=== PATIENT | male | born 1945 | race Caucasian/White ===

== ENCOUNTER 2017-04-03 21:32 | Inpatient (IN) | payer MEDICARE ==
[~2017-04-03] VITALS: Ht 149.9 cm; Wt 53.5 kg
[~2017-04-03 21:32] MED LIST: BUPR150XL PO; COZA25TA PO; FERR1TAB36 PO; OMEP20TA PO; PLAV75TA29 PO; XARE20TA PO
[2017-04-03 21:41] VITALS: BP 149/86; PULSE 83; RESP 16; TEMP 98.1; O2SAT 97
[2017-04-03] MEDS ORDERED: AMLO5TAB2 PO (22:33)
[2017-04-03] MEDS ORDERED: BUPR150T5 PO (22:33)
[2017-04-03] MEDS ORDERED: MORPHINE SULFATE 8 MG/ML INJ IV PUSH ONE (22:45)
[2017-04-03] MEDS ORDERED: SODIUM CHLORIDE 0.9% FLUSH 10 ML FLUSH IV FLUSH PRN (22:45)
--- NOTE | 2017-04-03 22:55 | PD ---
HPI Chief Complaint: Complaint Time Seen by Provider: 22:28 Travel History International Travel<30 days: No Contact w/Intl Traveler<30days: No Traveled to known affect area: No History of Present Illness HPI 71yo M with PMH of CVA, CAD s/p cardiac stent, bladder tumor s/p tumor resection not on chemo or radiation presents to the ED with c/o left sided abdominal pain that radiates to left back for 1 day. Denies any fever, chest pain, sob, n/v, dysuria, hematuria, testicular pain or penile discharge. PFSH Past Medical History Hx Anticoagulant Therapy: Yes Atrial Fibrillation: Yes Anxiety: No Depression: Yes Cancer: Yes (BLADDER/PROSTATE) Cardiovascular Problems: Yes High Cholesterol: Yes Cerebrovascular Accident: Yes Diabetes: No Diminished Hearing: No Endocrine: No Gastrointestinal Disorders: No GERD: Yes Genitourinary: Yes (PROSTATE) Hypertension: Yes Kidney Stones: Yes Neurologic: Yes Psychiatric: Yes Respiratory: No Seizures: No Triglycerides - High: Yes Past Surgical History Abdominal Surgery: No Cardiac Surgery: No Ear Surgery: No Eye Surgery: No Genitourinary Surgery: Yes (ASCENDING RIGHT TESTICLE REPAIR, BLADDER TUMOR REMOVAL) Oral Surgery: No Thoracic Surgery: No Tonsillectomy: Yes Other Surgery: Yes (TUMOR SCRAPED FROM BLADDER) Social History Alcohol Use: No Tobacco Use: No Substance Use: No Allergies-Medications (Allergen,Severity, Reaction): Coded Allergies: No Known Allergies (Unverified , 04/03/17) Reported Meds & Prescriptions Reported Meds & Active Scripts Active Reported Bupropion HCl ER 12 HR (Bupropion HCl) 150 Mg Tab 150 Mg PO BID Amlodipine (Amlodipine Besylate) 5 Mg Tab 5 Mg PO DAILY Wellbutrin Xl 24 HR (Bupropion HCl) 150 Mg Tab 150 Mg PO DAILY Xarelto (Rivaroxaban) 20 Mg Tab 20 Mg PO DAILY Omeprazole 20 Mg Tab 20 Mg PO DAILY Cozaar (Losartan Potassium) 25 Mg Tab 25 Mg PO DAILY Review of Systems Except as stated in HPI: all other systems reviewed are Neg Physical Exam Narrative GENERAL: 71yo M in mild distress. SKIN: Focused skin assessment warm/dry. HEAD: Atraumatic. Normocephalic. EYES: Pupils equal and round. No scleral icterus. No injection or drainage. ENT: No nasal bleeding or discharge. Mucous membranes pink and moist. NECK: Trachea midline. No JVD. CARDIOVASCULAR: Regular rate and rhythm. No murmur appreciated. RESPIRATORY: No accessory muscle use. Clear to auscultation. Breath sounds equal bilaterally. GASTROINTESTINAL: Abdomen soft, +Epigastric ttp. +LUQ ttp. No rebound tenderness or guarding. BACK: +CVA tenderness on left. MUSCULOSKELETAL: No obvious deformities. No clubbing. No cyanosis. No edema. NEUROLOGICAL: Awake and alert. No obvious cranial nerve deficits. Motor grossly within normal limits. Normal speech. PSYCHIATRIC: Appropriate mood and affect; insight and judgment normal. Data Data Last Documented VS Vital Signs Date Time Temp Pulse Resp B/P Pulse Ox O2 Delivery O2 Flow Rate FiO2 04/04/17 06:41 112 16 146/82 97 Room Air 04/03/17 21:41 98.1 Orders Complete Blood Count With Diff (04/03/17 22:45) Comprehensive Metabolic Panel (04/03/17 22:45) Lipase (04/03/17 22:45) Prothrombin Time / Inr (Pt) (04/03/17 22:45) Act Partial Throm Time (Ptt) (04/03/17 22:45) Urinalysis - C+S If Indicated (04/03/17 22:45) Iv Access Insert/Monitor (04/03/17 22:45) Ecg Monitoring (04/03/17 22:45) Oximetry (04/03/17 22:45) Electrocardiogram (04/03/17 ) Troponin I (04/03/17 22:45) Morphine Inj (Morphine Inj) (04/03/17 22:45) Ct Abd/Pel W/O Iv Contrast (04/04/17 ) Ondansetron Inj (Zofran Inj) (04/04/17 02:00) Morphine Inj (Morphine Inj) (04/04/17 02:00) Tamsulosin (Flomax) (04/04/17 02:15) Sodium Chlorid 0.9% 500 Ml Inj (Ns 500 M (04/04/17 03:15) Sodium Chlorid 0.9% 500 Ml Inj (Ns 500 M (04/04/17 04:45) Blood Culture (04/04/17 06:44) Lactic Acid (04/04/17 06:44) Ceftriaxone Inj (Rocephin Inj) (04/04/17 06:45) Sodium Chlorid 0.9% 500 Ml Inj (Ns 500 M (04/04/17 06:45) Admit Order (Ed Use Only) (04/04/17 ) ^ Saline Lock (04/04/17 06:49) Resp Oxygen Jose C Titrat 1-4 L (04/04/17 ) Notify Dr: Other (04/04/17 06:49) Sodium Chloride 0.9% Flush (Ns Flush) (04/04/17 09:00) Sodium Chloride 0.9% Flush (Ns Flush) (04/04/17 07:00) Labs Laboratory Tests Test 04/03/17 04/04/17 23:25 00:15 White Blood Count 11.5 TH/MM3 Red Blood Count 4.04 MIL/MM3 Hemoglobin 12.3 GM/DL Hematocrit 36.1 % Mean Corpuscular Volume 89.2 FL Mean Corpuscular Hemoglobin 30.4 PG Mean Corpuscular Hemoglobin 34.0 % Concent Red Cell Distribution Width 13.0 % Platelet Count 225 TH/MM3 Mean Platelet Volume 7.6 FL Neutrophils (%) (Auto) 82.8 % Lymphocytes (%) (Auto) 8.1 % Monocytes (%) (Auto) 5.4 % Eosinophils (%) (Auto) 3.4 % Basophils (%) (Auto) 0.3 % Neutrophils # (Auto) 9.6 TH/MM3 Lymphocytes # (Auto) 0.9 TH/MM3 Monocytes # (Auto) 0.6 TH/MM3 Eosinophils # (Auto) 0.4 TH/MM3 Basophils # (Auto) 0.0 TH/MM3 CBC Comment DIFF FINAL Differential Comment Prothrombin Time 13.0 SEC Prothromb Time International 1.2 RATIO Ratio Activated Partial 27.9 SEC Thromboplast Time Sodium Level 143 MEQ/L Potassium Level 4.0 MEQ/L Chloride Level 111 MEQ/L Carbon Dioxide Level 25.2 MEQ/L Anion Gap 7 MEQ/L Blood Urea Nitrogen 21 MG/DL Creatinine 1.50 MG/DL Estimat Glomerular Filtration 46 ML/MIN Rate Random Glucose 118 MG/DL Calcium Level 8.6 MG/DL Total Bilirubin 0.2 MG/DL Aspartate Amino Transf 13 U/L (AST/SGOT) Alanine Aminotransferase 15 U/L (ALT/SGPT) Alkaline Phosphatase 66 U/L Troponin I LESS THAN 0.02 NG/ML Total Protein 6.3 GM/DL Albumin 3.4 GM/DL Lipase 157 U/L Urine Color FLO Urine Turbidity CLOUDY Urine pH 5.5 Urine Specific [place] 1.017 Urine Protein TRACE mg/dL Urine Glucose (UA) NEG mg/dL Urine Ketones NEG mg/dL Urine Occult Blood LARGE Urine Nitrite NEG Urine Bilirubin NEG Urine Leukocyte Esterase NEG Urine RBC INNUM /hpf Urine WBC 3-5 /hpf Urine Squamous Epithelial 6-8 /hpf Cells Urine Amorphous Sediment LARGE Urine Bacteria NONE /hpf Microscopic Urinalysis Comment CULT NOT INDICATED MDM Medical Decision Making Medical Screen Exam Complete: Yes Emergency Medical Condition: Yes Interpretation(s) EKG; NSR 99bpm. Normal axis. No ST segment elevation or depression. Differential Diagnosis Nephrolithiasis vs. pyelonephritis vs. malignancy Narrative Course 71yo M with left abdominal pain radiating to the back for 1 day. Labs reviewed , WBC 11.5. Troponin negative. Creatinine is mildly elevated at 1.50 from baseline. Lipase normal. Pt refused morphine IV because he said he has. UA positive for blood. Sign out to next team Dr. Lunsford to follow up with CTa/p and disposition. Diagnosis Primary Impression: Abdominal pain Qualified Code: R10.32 - Left lower quadrant pain Nori Fernandez DO Apr 03, 2017 22:55
[2017-04-03 23:30] VITALS: BP 150/98; PULSE 97
[2017-04-03 23:35] LABS: AUTOMATED NEUTROPHIL # 9.6 TH/MM3 (1.8-7.7); BASOPHIL % 0.3 % (0.0-2.0); EOSINOPHIL # 0.4 TH/MM3 (0-0.4); EOSINOPHIL % 3.4 % (0.0-4.0); HEMATOCRIT 36.1 % (39.0-51.0); HEMO FLAGS DIFF FINAL; LYMPH % 8.1 % (9.0-44.0); LYMPHOCYTE # 0.9 TH/MM3 (1.0-4.8); MEAN CELL VOLUME 89.2 FL (80.0-100.0); MEAN CORPUSCULAR HEMOGLOBIN 30.4 PG (27.0-34.0); MONO % 5.4 % (0.0-8.0); NEUT % 82.8 % (16.0-70.0); PLATELET COUNT 225 TH/MM3 (150-450); RED BLOOD COUNT 4.04 MIL/MM3 (4.50-5.90); WHITE BLOOD COUNT 11.5 TH/MM3 (4.0-11.0)
[2017-04-03 23:43] LABS: CHLORIDE 111 MEQ/L (98-107); SODIUM (NA) 143 MEQ/L (136-145)
[2017-04-03 23:47] LABS: ANION GAP 7 MEQ/L (5-15); BICARBONATE 25.2 MEQ/L (21.0-32.0); BLOOD UREA NITROGEN 21 MG/DL (7-18)
[2017-04-03 23:49] LABS: APTT (PATIENT) 27.9 SEC (24.3-30.1); INTERNATIONAL NORMALIZED RATIO 1.2 RATIO
[2017-04-03 23:50] LABS: ALT (GPT) 15 U/L (12-78); AST (GOT) 13 U/L (15-37); GLOMERULAR FILTRATION RATE 46 ML/MIN (>89)
[2017-04-03 23:51] LABS: TOTAL BILIRUBIN ADULT 0.2 MG/DL (0.2-1.0)
[2017-04-03 23:53] LABS: ALKALINE PHOSPHATASE 66 U/L (45-117)
[2017-04-04] VITALS (16 sets, daily range): BP systolic 120–163; BP diastolic 67–90; PULSE 73–115; RESP 16–20; TEMP 97.4–99.7; O2SAT 92–99
[2017-04-04 00:41] LABS: BLOOD, URINE LARGE (NEG); GLUCOSE,URINE NEG (NEG); KETONE, URINE NEG (NEG); NITRITE,URINE NEG (NEG); PH, URINE 5.5 (5.0-8.5)
--- NOTE | 2017-04-04 00:47 | PD ---
Physical Exam Date Seen by Provider: Apr 04, 2017 Time Seen by Provider: 00:46 Narrative Accepted in transfer of care from Dr. Fernandez GENERAL: Well-developed well-nourished male in no acute distress no respiratory distress SKIN: Warm and dry. CARDIOVASCULAR: Regular rate and rhythm without murmurs, gallops, or rubs. RESPIRATORY: Breath sounds equal bilaterally. No accessory muscle use. GASTROINTESTINAL: Abdomen soft, non-tender, nondistended. BACK: Nontender without obvious deformity. (L) CVA tenderness. Data Data Last Documented VS Vital Signs Date Time Temp Pulse Resp B/P Pulse Ox O2 Delivery O2 Flow Rate FiO2 04/04/17 06:41 112 16 146/82 97 Room Air 04/03/17 21:41 98.1 Orders Complete Blood Count With Diff (04/03/17 22:45) Comprehensive Metabolic Panel (04/03/17 22:45) Lipase (04/03/17 22:45) Prothrombin Time / Inr (Pt) (04/03/17 22:45) Act Partial Throm Time (Ptt) (04/03/17 22:45) Urinalysis - C+S If Indicated (04/03/17 22:45) Iv Access Insert/Monitor (04/03/17 22:45) Ecg Monitoring (04/03/17 22:45) Oximetry (04/03/17 22:45) Electrocardiogram (04/03/17 ) Troponin I (04/03/17 22:45) Morphine Inj (Morphine Inj) (04/03/17 22:45) Ct Abd/Pel W/O Iv Contrast (04/04/17 ) Ondansetron Inj (Zofran Inj) (04/04/17 02:00) Morphine Inj (Morphine Inj) (04/04/17 02:00) Tamsulosin (Flomax) (04/04/17 02:15) Sodium Chlorid 0.9% 500 Ml Inj (Ns 500 M (04/04/17 03:15) Sodium Chlorid 0.9% 500 Ml Inj (Ns 500 M (04/04/17 04:45) Blood Culture (04/04/17 06:44) Lactic Acid (04/04/17 06:44) Ceftriaxone Inj (Rocephin Inj) (04/04/17 06:45) Sodium Chlorid 0.9% 500 Ml Inj (Ns 500 M (04/04/17 06:45) Admit Order (Ed Use Only) (04/04/17 ) ^ Saline Lock (04/04/17 06:49) Resp Oxygen Jose C Titrat 1-4 L (04/04/17 ) Notify Dr: Other (04/04/17 06:49) Sodium Chloride 0.9% Flush (Ns Flush) (04/04/17 09:00) Sodium Chloride 0.9% Flush (Ns Flush) (04/04/17 07:00) Labs Laboratory Tests Test 04/03/17 04/04/17 23:25 00:15 White Blood Count 11.5 TH/MM3 Red Blood Count 4.04 MIL/MM3 Hemoglobin 12.3 GM/DL Hematocrit 36.1 % Mean Corpuscular Volume 89.2 FL Mean Corpuscular Hemoglobin 30.4 PG Mean Corpuscular Hemoglobin 34.0 % Concent Red Cell Distribution Width 13.0 % Platelet Count 225 TH/MM3 Mean Platelet Volume 7.6 FL Neutrophils (%) (Auto) 82.8 % Lymphocytes (%) (Auto) 8.1 % Monocytes (%) (Auto) 5.4 % Eosinophils (%) (Auto) 3.4 % Basophils (%) (Auto) 0.3 % Neutrophils # (Auto) 9.6 TH/MM3 Lymphocytes # (Auto) 0.9 TH/MM3 Monocytes # (Auto) 0.6 TH/MM3 Eosinophils # (Auto) 0.4 TH/MM3 Basophils # (Auto) 0.0 TH/MM3 CBC Comment DIFF FINAL Differential Comment Prothrombin Time 13.0 SEC Prothromb Time International 1.2 RATIO Ratio Activated Partial 27.9 SEC Thromboplast Time Sodium Level 143 MEQ/L Potassium Level 4.0 MEQ/L Chloride Level 111 MEQ/L Carbon Dioxide Level 25.2 MEQ/L Anion Gap 7 MEQ/L Blood Urea Nitrogen 21 MG/DL Creatinine 1.50 MG/DL Estimat Glomerular Filtration 46 ML/MIN Rate Random Glucose 118 MG/DL Calcium Level 8.6 MG/DL Total Bilirubin 0.2 MG/DL Aspartate Amino Transf 13 U/L (AST/SGOT) Alanine Aminotransferase 15 U/L (ALT/SGPT) Alkaline Phosphatase 66 U/L Troponin I LESS THAN 0.02 NG/ML Total Protein 6.3 GM/DL Albumin 3.4 GM/DL Lipase 157 U/L Urine Color FLO Urine Turbidity CLOUDY Urine pH 5.5 Urine Specific [place] 1.017 Urine Protein TRACE mg/dL Urine Glucose (UA) NEG mg/dL Urine Ketones NEG mg/dL Urine Occult Blood LARGE Urine Nitrite NEG Urine Bilirubin NEG Urine Leukocyte Esterase NEG Urine RBC INNUM /hpf Urine WBC 3-5 /hpf Urine Squamous Epithelial 6-8 /hpf Cells Urine Amorphous Sediment LARGE Urine Bacteria NONE /hpf Microscopic Urinalysis Comment CULT NOT INDICATED MDM Medical Record Reviewed: Yes Supervised Visit with GENIE: No Interpretation(s) Last Impressions Abdomen/Pelvis CT 04/04/17 0000 Signed Impressions: Service Date/Time: Tuesday, April 04, 2017 01:02 - CONCLUSION: 1. Mild hydronephrosis, perinephric stranding and slight proximal ureteral dilatation on the left secondary to a left ureteral calculus at the L5 level. 2. Atherosclerosis and aneurysmal dilatation of the infrarenal abdominal aorta identified. 3. Small fat containing umbilical hernia. 4. Hiatal hernia. Christiano Matamoros MD Differential Diagnosis Accepted in transfer of care from Dr. Fernandez please refer to her dictation Narrative Course Accepted in transfer of care from Dr. Fernandez for follow-up of pending CT abdomen and pelvis CT abdomen and pelvis identifies 2.6 mm mid left ureter stone with mild hydronephrosis hydroureter and perinephric stranding; patient also identified to have 3.6 x 3 cm abdominal aortic aneurysm no evidence of free fluid. Her urinalysis patient identified to have hematuria. 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 Patient given prescription for Lortab 5/325 Zofran to take as needed for nausea and/or vomiting and Flomax. Patient given strainer. Patient encouraged to increase fluid hydration. While in the process of preparing to discharge the patient to home; after IV fluid bolus patient noted to remain tachycardic in a sinus tachycardia with frequent PACs rare PVC but with additional fluid hydration sinus tachycardia does not resolve; patient remains normotensive with no pain or maximum pain 2/ 10 in intensity; patient with attempted ambulation or upon sitting upright complains of dizziness; has received a one-time dose of morphine 3 mg IV and noted to have new renal insufficiency and reports poor oral intake Thursday. Patient taking oral hydration here and has had total 30 cc/kg iv fluid bolus; therefore discussed with [facility] re: OBS; Patient and spouse aware of plan for obs admission and agreeable to stay. Physician Communication Physician Communication call placed to [facility] service discussed with Dr Castaneda -- admit for obstructive uropathy tachycardia possible pyelonephritis w/ acute renal insufficiency and h/ o xarelto anticoagulation for cva and afib Diagnosis Primary Impression: Acute unilateral obstructive uropathy Additional Impressions: Left nephrolithiasis Abdominal aortic aneurysm (AAA) 35 to 39 mm in diameter Renal insufficiency Tachycardia History of atrial fibrillation Admitting Information Admitting Physician Requests: Observation Additional Instruction: Ann Lunsford MD Apr 04, 2017 00:47 Return to the emergency department for any concerns or change in condition; such as pain fever or vomiting Monitor temperature take as needed acetaminophen/Tylenol for fever 100.4F or greater Take pain medication as prescribed as needed be aware that pain medication/her cardiac medication can impair judgment, delay reaction time, increased risk for fall, cause constipation Takes Zofran as prescribed as needed for nausea and/or vomiting Med/Other Pt SpecificInfo: Prescription(s) given Scripts Tamsulosin (Flomax)0.4 Mg Cap0.4 Mg PO HS #7 CAP Ref 0 Prov:Ann Lunsford MD 04/04/17 Ondansetron Odt (Zofran Odt)4 Mg Tab4 Mg SL Q6HR PRN (Nausea/Vomiting) #10 TAB Ref 0 Prov:Ann Lunsford MD 04/04/17 Hydrocodone-Acetaminophen (Lortab)5-325 Mg Tab1 Tab PO Q6H PRN (PAIN) #12 TAB Ref 0 Prov:Ann Lunsford MD 04/04/17 Disposition: 01 DISCHARGE HOME Condition: Stable Ann Lunsford MD Apr 04, 2017 00:47
[2017-04-04 00:51] LABS: URINE COLOR AMBER (YELLW/STRAW)
[2017-04-04 00:52] LABS: COMMENT (UR) CULT NOT INDICATED; COMMENT2 (UR) MUCOUS PRESENT; CULTURE IF INDICATED CULT NOT INDICATED; RBC, URINE INNUM /hpf (0-3)
--- NOTE | 2017-04-04 01:38 | RADRPT ---
EXAM DATE/TIME: 04/04/2017 01:02 [place] COMPARISON: No previous studies available for comparison. INDICATIONS : Left flank pain ORAL CONTRAST: No oral contrast ingested. RADIATION DOSE: 8.23 CTDIvol (mGy) MEDICAL HISTORY : Carcinoma, prostate. Carcinoma, bladder. Hypertension.GERD, Renal stones SURGICAL HISTORY : Bladder tumor removed, testicle repair ENCOUNTER: Initial ACUITY: 1 day PAIN SCALE: 4/10 LOCATION: Left flank TECHNIQUE: Volumetric scanning of the abdomen and pelvis was performed. Using automated exposure control and ad justment of the mA and/or kV according to patient size, radiation dose was kept as low as reasonably achievable to obtain optimal diagnostic quality images. DICOM format image data is available electro nically for review and comparison. FINDINGS: Coronary artery calcification is noted and a large hiatal hernia is present. Liver, gallbladder, sple en, pancreas, adrenal glands and right kidney are unremarkable. There is perinephric stranding on the left, mild left-sided hydronephrosis and proximal slight ureteral dilatation. On axial image 48 ther e is a left ureteral stone measuring 2.6 mm. This is at the level of L5. At the midpole of the left k idney anteriorly a 2.7 x 2.2 cm exophytic mass is present measuring 8 Hounsfield units characteristic of a cyst. Atherosclerotic calcification of the aorta and iliac vessels. Urinary bladder is unremark able. The prostate is prominent measuring 5 x 5 cm AP and transverse dimension. Small bowel, large christiano wel are unremarkable. Small fat containing umbilical hernia. Atherosclerotic calcification of the aor ta and iliac vessels are identified. There is aneurysmal dilatation of the infrarenal abdominal aorta which measures 3.6 x 3 cm in AP and transverse dimension on axial image 38 and just distal to the ta keoff of the inferior mesenteric artery the aorta measures 3.6 x 3.5 cm in AP transverse dimension. L hilda bases are clear. Degenerative changes of the spine are noted. CONCLUSION: 1. Mild hydronephrosis, perinephric stranding and slight proximal ureteral dilatation on the left sec ondary to a left ureteral calculus at the L5 level. 2. Atherosclerosis and aneurysmal dilatation of the infrarenal abdominal aorta identified. 3. Small fat containing umbilical hernia. 4. Hiatal hernia. Christiano Matamoros MD on April 04, 2017 at 1:33 Board Certified Radiologist. This report was verified electronically.
[2017-04-04] MEDS ORDERED: MORPHINE SULFATE 8 MG/ML INJ IV PUSH ONE (02:00)
[2017-04-04] MEDS ORDERED: ONDANSETRON HCL 4 MG/2 ML VIAL IV PUSH ONE (02:00)
[2017-04-04] MEDS ORDERED: TAMSULOSIN HCL 0.4 MG CAP PO ONE (02:15)
[2017-04-04] MEDS ORDERED: SODIUM CHLORID 0.9% 500 ML INJ 500 ML IV ONE ×3 (03:15→06:45)
[2017-04-04] MEDS ORDERED: TAMS5CAP PO (04:20)
[2017-04-04] MEDS ORDERED: ZOFR4TAB3 SL (04:20)
[2017-04-04] MEDS ORDERED: HYDR-3533 PO (04:20)
[2017-04-04] MEDS ORDERED: cefTRIAXone INJ 1,000 MG in SODIUM CHLORIDE 0.9% INJ 100 ML IV ONE (06:45)
[2017-04-04] MEDS ORDERED: BISACODYL 10 MG SUPP RECTAL PRN (07:00)
[2017-04-04] MEDS ORDERED: SODIUM CHLORIDE 0.9% FLUSH 10 ML FLUSH IVF PRN (07:00)
[2017-04-04] MEDS ORDERED: MAGNESIUM HYDROXIDE SUSP 30 ML CUP PO PRN (07:00)
[2017-04-04] MEDS ORDERED: SENNOSIDES 8.6 MG TAB PO PRN (07:00)
[2017-04-04] MEDS ORDERED: ONDANSETRON HCL 4 MG/2 ML VIAL IVP PRN (07:00)
[2017-04-04] MEDS ORDERED: LACTULOSE SYRUP 20 GM/30 ML CUP PO PRN (07:00)
[2017-04-04] MEDS ORDERED: SODIUM CHLORIDE 0.9% FLUSH 10 ML FLUSH IV FLUSH PRN (07:00)
[2017-04-04] MEDS ORDERED: ACETAMINOPHEN 325 MG TAB PO PRN (07:00)
[2017-04-04] MEDS ORDERED: ACETAMINOPHEN/HYDROcodone 325 MG/5 MG TAB PO PRN (07:00)
[2017-04-04] MEDS: SODIUM CHLOR 0.9% 1000 ML INJ 1,000 ML IV SCH ×3 (07:18→20:48)
[2017-04-04] MEDS: SODIUM CHLORIDE 0.9% FLUSH 10 ML FLUSH IV FLUSH SCH ×4 (09:00→20:48)
[2017-04-04] MEDS ORDERED: buPROPion HCL 150 MG EXTENDED RELEASE TAB PO SCH (09:00)
[2017-04-04] MEDS: DOCUSATE SODIUM 50 MG/SENNA 8.6 MG TAB PO SCH ×2 (09:00→10:42)
[2017-04-04] MEDS: PANTOPRAZOLE SOD 20 MG DELAYED RELEASE TAB PO SCH ×2 (09:00→10:42)
[2017-04-04] MEDS: buPROPion HCL 150 MG SUSTAINED RELEASE TAB PO SCH ×2 (10:42→20:48)
[2017-04-04] MEDS: amLODIPine BESYLATE 5 MG TAB PO SCH (10:42)
--- NOTE | 2017-04-04 12:49 | EKG ---
Date Performed: 04/03/2017 Time Performed: 23:05:21 PTAGE: 71 years EKG: Sinus rhythm NONSPECIFIC T-WAVE ABNORMALITY Compared to prior tracing no significant change BORDERLINE ECG PREVIOUS TRACING : 10/18/2013 18.11 DOCTOR: Luis Pike Interpretating Date/Time 04/04/2017 12:43:38
[2017-04-04] MEDS: CLOPIDOGREL 75 MG TAB PO SCH (12:55)
[2017-04-04] MEDS: LOSARTAN 25 MG TAB PO SCH (12:55)
[2017-04-04] MEDS: MULTIVITAMINS/IRON/MINERALS CHEWABLE TAB CHEW SCH (15:04)
--- NOTE | 2017-04-04 16:09 | HHI.HP ---
[facility] Service [facility] Primary Care Physician Moy Grigsby MD Admission Diagnosis obstructive uropathy, pyelonepthritis; NORA; anticoagulation h/o afib Diagnoses: Chief Complaint: Abdominal pain Travel History International Travel<30 Days: No Contact w/Intl Traveler <30 Da: No Traveled to Known Affected Are: No History of Present Illness Patient is a 71 year-old gentleman came to the hospital with complaints of abdominal pain on the left side radiating to the back for 1 day with associated dysuria. The pain was relieved with IV morphine. Pain was severe and the patient's spouse brought him to the hospital for further evaluation. There has been no nausea or vomiting. Patient admits to moderate dysuria. He has had renal stones in the past and on evaluation emergency room he was found to have left nephrolithiasis with mild hydronephrosis and hydroureter. Stone is 2.6 cm. There is some period nephric stranding. Patient was started on Rocephin and given IV fluids. Currently he is pain-free. Incidentally he is noted to have a aortic aneurysm which is not known to patient with spouse in the past. This was discussed with patient and spouse. 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 Review of Systems Constitutional: DENIES: Diaphoretic episodes, Fatigue, Fever, Weight gain, Weight loss, Chills, Dizziness, Change in appetite, Night Sweats Endocrine: DENIES: Heat/cold intolerance, Polydipsia, Polyuria, Polyphagia Eyes: DENIES: Blurred vision, Diplopia, Eye inflammation, Eye pain, Vision loss , Photosensitivity, Double Vision Ears, nose, mouth, throat: DENIES: Tinnitus, Hearing loss, Vertigo, Nasal discharge, Oral lesions, Throat pain, Hoarseness, Ear Pain, Running Nose, Epistaxis, Sinus Pain, Toothache, Odynophagia Respiratory: DENIES: Apneas, Cough, Snoring, Wheezing, Hemoptysis, Sputum production, Shortness of breath Cardiovascular: DENIES: Chest pain, Palpitations, Syncope, Dyspnea on Exertion , PND, Lower Extremity Edema, Orthopnea, Claudication Gastrointestinal: COMPLAINS OF: Abdominal pain Genitourinary: DENIES: Sexual dysfunction, Urinary frequency, Urinary incontinence, Urgency, Hematuria, Dysuria, Nocturia, Penile Discharge, Testicular Pain, Testicular Swelling Musculoskeletal: DENIES: Joint pain, Muscle aches, Stiffness, Joint Swelling, Back pain, Neck pain Integumentary: DENIES: Abnormal pigmentation, Nail changes, Pruritus, Rash Hematologic/lymphatic: DENIES: Bruising, Lymphadenopathy Immunologic/allergic: DENIES: Eczema, Urticaria Neurologic: DENIES: Abnormal gait, Headache, Localized weakness, Paresthesias, Seizures, Speech Problems, Tremor, Poor Balance Psychiatric: DENIES: Anxiety, Confusion, Mood changes, Depression, Hallucinations, Agitation, Suicidal Ideation, Homicidal Ideation, Delusions Past Family Social History Past Medical History vascular dementia bladder ca cva Atrial fibrillation hyperlipidemia Past Surgical History Removal of bladder tumor Reported Medications Reviewed in the medical record, nothing new Allergies: Coded Allergies: No Known Allergies (Unverified , 04/03/17) Active Ordered Medications Reviewed in the medical record Family History Patient does not know it Physical Exam Vital Signs Vital Signs Date Time Temp Pulse Resp B/P Pulse Ox O2 Delivery O2 Flow Rate FiO2 04/04/17 12:00 98.2 102 20 135/86 95 04/04/17 08:45 98.2 102 20 135/86 95 04/04/17 07:22 115 18 141/81 97 Room Air 04/04/17 06:41 112 16 146/82 97 Room Air 04/04/17 06:33 104 16 126/72 99 Room Air 04/04/17 06:17 108 16 123/89 99 Room Air 04/04/17 04:49 112 123/90 04/04/17 04:26 104 16 144/83 98 Room Air 04/04/17 03:24 109 16 120/87 99 Room Air 04/04/17 02:00 92 18 163/88 04/04/17 01:15 86 162/86 04/03/17 23:30 97 150/98 04/03/17 21:41 98.1 83 16 149/86 97 Physical Exam GENERAL: This is a well-nourished, well-developed patient, in no apparent distress. SKIN: No rashes, ecchymoses or lesions. Cool and dry. HEAD: Atraumatic. Normocephalic. No temporal or scalp tenderness. EYES: Pupils equal round and reactive. Extraocular motions intact. No scleral icterus. No injection or drainage. ENT: Nose without bleeding, purulent drainage or septal hematoma. Throat without erythema, tonsillar hypertrophy or exudate. Uvula midline. Airway patent. NECK: Trachea midline. No JVD or lymphadenopathy. Supple, nontender, no meningeal signs. CARDIOVASCULAR: Regular rate and rhythm without murmurs, gallops, or rubs. RESPIRATORY: Clear to auscultation. Breath sounds equal bilaterally. No wheezes , rales, or rhonchi. GASTROINTESTINAL: Abdomen soft, non-tender, nondistended. No hepato-splenomegaly , or palpable masses. No guarding. MUSCULOSKELETAL: Extremities without clubbing, cyanosis, or edema. No joint tenderness, effusion, or edema noted. No calf tenderness. Negative Homans sign bilaterally. NEUROLOGICAL: Awake and alert, forgetful. Cranial nerves II through XII intact. Motor and sensory grossly within normal limits. Left-sided weakness Normal speech. Laboratory Laboratory Tests Test 04/03/17 04/04/17 04/04/17 23:25 00:15 07:00 White Blood Count 11.5 Red Blood Count 4.04 Hemoglobin 12.3 Hematocrit 36.1 Mean Corpuscular Volume 89.2 Mean Corpuscular Hemoglobin 30.4 Mean Corpuscular Hemoglobin 34.0 Concent Red Cell Distribution Width 13.0 Platelet Count 225 Mean Platelet Volume 7.6 Neutrophils (%) (Auto) 82.8 Lymphocytes (%) (Auto) 8.1 Monocytes (%) (Auto) 5.4 Eosinophils (%) (Auto) 3.4 Basophils (%) (Auto) 0.3 Neutrophils # (Auto) 9.6 Lymphocytes # (Auto) 0.9 Monocytes # (Auto) 0.6 Eosinophils # (Auto) 0.4 Basophils # (Auto) 0.0 CBC Comment DIFF FINAL Differential Comment Prothrombin Time 13.0 Prothromb Time International 1.2 Ratio Activated Partial 27.9 Thromboplast Time Sodium Level 143 Potassium Level 4.0 Chloride Level 111 Carbon Dioxide Level 25.2 Anion Gap 7 Blood Urea Nitrogen 21 Creatinine 1.50 Estimat Glomerular Filtration 46 Rate Random Glucose 118 Calcium Level 8.6 Total Bilirubin 0.2 Aspartate Amino Transf 13 (AST/SGOT) Alanine Aminotransferase 15 (ALT/SGPT) Alkaline Phosphatase 66 Troponin I LESS THAN 0.02 Total Protein 6.3 Albumin 3.4 Lipase 157 Urine Color FLO Urine Turbidity CLOUDY Urine pH 5.5 Urine Specific [place] 1.017 Urine Protein TRACE Urine Glucose (UA) NEG Urine Ketones NEG Urine Occult Blood LARGE Urine Nitrite NEG Urine Bilirubin NEG Urine Leukocyte Esterase NEG Urine RBC INNUM Urine WBC 3-5 Urine Squamous Epithelial 6-8 Cells Urine Amorphous Sediment LARGE Urine Bacteria NONE Microscopic Urinalysis Comment CULT NOT INDICATED Lactic Acid Level 1.0 Date/Time Procedure Status Source Growth 04/04/17 07:00 Aerobic Blood Culture Received Blood Peripheral Pending 04/04/17 07:00 Anaerobic Blood Culture Received Blood Peripheral Pending Result Diagram: 04/03/17 2325 04/03/17 2325 Imaging Last Impressions Abdomen/Pelvis CT 04/04/17 0000 Signed Impressions: Service Date/Time: Thursday, April 04, 2017 01:02 - CONCLUSION: 1. Mild hydronephrosis, perinephric stranding and slight proximal ureteral dilatation on the left secondary to a left ureteral calculus at the L5 level. 2. Atherosclerosis and aneurysmal dilatation of the infrarenal abdominal aorta identified. 3. Small fat containing umbilical hernia. 4. Hiatal hernia. Christiano Matamoros MD Assessment and Plan Problem List: (1) Tachycardia ICD Code: R00.0 Status: Acute Plan: Continue telemetry Continue hydration Follow With a history of atrial fibrillation which has been previously controlled, currently in sinus (2) Left nephrolithiasis ICD Code: N20.0 Status: Acute Plan: Patient with remote history of kidney stones, continue IV hydration and current (3) Abdominal aortic aneurysm (AAA) 35 to 39 mm in diameter ICD Code: I71.4 Status: Acute Plan: new. Discussed with patient and with significant other, continue surveillance (4) Afib ICD Code: I48.91 Status: Chronic Plan: on xarelto (renal dose) (5) Renal insufficiency ICD Code: N28.9 Status: Acute Plan: chronic Avoid nephrotoxic injury (6) Stroke ICD Code: I63.9 Status: Acute Plan: With residual left-sided deficits and vascular dementia Continue Plavix Physician Certification 2 Midnight Certification Type: Admission for Inpatient Services Order for Inpatient Services The services are ordered in accordance with Medicare regulations or non- Medicare payer requirements, as applicable. In the case of services not specified as inpatient-only, they are appropriately provided as inpatient services in accordance with the 2-midnight benchmark. Estimated LOS (days): 3 3 days is the estimated time the patient will need to remain in the hospital, assuming treatment plan goals are met and no additional complications. Post-Hospital Plan: Shanon Flannery MD Apr 04, 2017 16:09
[2017-04-04] MEDS: MORPHINE SULFATE 8 MG/ML INJ IV PUSH PRN (20:49)
[2017-04-05] VITALS (7 sets, daily range): BP systolic 118–149; BP diastolic 74–81; PULSE 80–118; RESP 18–20; TEMP 97.6–98.8; O2SAT 93–96
[2017-04-05] MEDS: MORPHINE SULFATE 8 MG/ML INJ IV PUSH PRN (04:21)
[2017-04-05 07:14] LABS: AUTOMATED NEUTROPHIL # 9.9 TH/MM3 (1.8-7.7); BASOPHIL % 0.2 % (0.0-2.0); EOSINOPHIL # 0.1 TH/MM3 (0-0.4); EOSINOPHIL % 0.9 % (0.0-4.0); HEMATOCRIT 34.6 % (39.0-51.0); LYMPH % 5.4 % (9.0-44.0); LYMPHOCYTE # 0.6 TH/MM3 (1.0-4.8); MEAN CELL VOLUME 90.6 FL (80.0-100.0); MEAN CORPUSCULAR HGB CONC 33.1 % (32.0-36.0); MONO % 7.4 % (0.0-8.0); NEUT % 86.1 % (16.0-70.0); PLATELET COUNT 177 TH/MM3 (150-450); RED BLOOD COUNT 3.81 MIL/MM3 (4.50-5.90); RED CELL DISTRIBUTION WIDTH 12.1 % (11.6-17.2); WHITE BLOOD COUNT 11.4 TH/MM3 (4.0-11.0)
[2017-04-05 07:23] LABS: HEMO FLAGS DIFF FINAL
[2017-04-05 07:25] LABS: CHLORIDE 109 MEQ/L (98-107); POTASSIUM 3.4 MEQ/L (3.5-5.1); SODIUM (NA) 143 MEQ/L (136-145)
[2017-04-05 07:30] LABS: ANION GAP 8 MEQ/L (5-15); BICARBONATE 26.2 MEQ/L (21.0-32.0); BLOOD UREA NITROGEN 16 MG/DL (7-18)
[2017-04-05 07:33] LABS: ALT (GPT) 12 U/L (12-78); AST (GOT) 13 U/L (15-37); GLOMERULAR FILTRATION RATE 50 ML/MIN (>89)
[2017-04-05 07:34] LABS: TOTAL BILIRUBIN ADULT 0.5 MG/DL (0.2-1.0)
[2017-04-05 07:36] LABS: ALKALINE PHOSPHATASE 62 U/L (45-117)
[2017-04-05] MEDS: SODIUM CHLORIDE 0.9% FLUSH 10 ML FLUSH IV FLUSH SCH ×2 (09:00→09:14)
[2017-04-05] MEDS ORDERED: TAMSULOSIN HCL 0.4 MG CAP PO SCH (09:00)
[2017-04-05] MEDS: CLOPIDOGREL 75 MG TAB PO SCH (09:11)
[2017-04-05] MEDS: MULTIVITAMINS/IRON/MINERALS CHEWABLE TAB CHEW SCH (09:11)
[2017-04-05] MEDS: amLODIPine BESYLATE 5 MG TAB PO SCH (09:12)
[2017-04-05] MEDS: PANTOPRAZOLE SOD 20 MG DELAYED RELEASE TAB PO SCH (09:13)
[2017-04-05] MEDS: buPROPion HCL 150 MG SUSTAINED RELEASE TAB PO SCH (09:13)
[2017-04-05] MEDS: LOSARTAN 25 MG TAB PO SCH (09:13)
[2017-04-05] MEDS: SODIUM CHLOR 0.9% 1000 ML INJ 1,000 ML IV SCH (09:15)
[2017-04-05] MEDS ORDERED: CIPR-9 PO (09:46)
--- NOTE | 2017-04-05 09:46 | HHI.DCPOC ---
Discharge Care Plan Diagnosis: (1) Abdominal aortic aneurysm (AAA) 35 to 39 mm in diameter (2) Renal insufficiency (3) Left nephrolithiasis Goals to Promote Your Health * To prevent worsening of your condition and complications * To maintain your health at the optimal level Directions to Meet Your Goals Take your medications as prescribed Follow your dietary instruction Follow activity as directed Keep your appointments as scheduled Take your immunizations and boosters as scheduled If your symptoms worsen call your PCP, if no PCP go to Urgent Care Center or Emergency Room Smoking is Dangerous to Your Health. Avoid second hand smoke Call the 24-hour hour crisis hotline for domestic abuse at Shanon Collisn MD Apr 05, 2017 09:46
--- NOTE | 2017-04-05 09:49 | HHI.DS ---
cc: Moy Grigsby MD Discharge Summary Admission Date Apr 04, 2017 at 06:52 Discharge Date: Apr 05, 2017 Admitting Diagnosis obstructive uropathy, pyelonepthritis; NORA; anticoagulation h/o afib (1) Tachycardia ICD Code: R00.0 (2) Left nephrolithiasis ICD Code: N20.0 (3) Abdominal aortic aneurysm (AAA) 35 to 39 mm in diameter ICD Code: I71.4 (4) Afib ICD Code: I48.91 (5) Renal insufficiency ICD Code: N28.9 (6) Stroke ICD Code: I63.9 Procedures none Brief History - From Admission Patient is a 71 year-old gentleman came to the hospital with complaints of abdominal pain on the left side radiating to the back for 1 day with associated dysuria. The pain was relieved with IV morphine. Pain was severe and the patient's spouse brought him to the hospital for further evaluation. There has been no nausea or vomiting. Patient admits to moderate dysuria. He has had renal stones in the past and on evaluation emergency room he was found to have left nephrolithiasis with mild hydronephrosis and hydroureter. Stone is 2.6 cm. There is some period nephric stranding. Patient was started on Rocephin and given IV fluids. Currently he is pain-free. Incidentally he is noted to have a aortic aneurysm which is not known to patient with spouse in the past. This was discussed with patient and spouse. 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 CBC/BMP: 04/05/17 0623 04/05/17 0623 Significant Findings Laboratory Tests Test 04/03/17 04/04/17 04/05/17 23:25 00:15 06:23 White Blood Count 11.5 TH/MM3 11.4 TH/MM3 (4.0-11.0) (4.0-11.0) Red Blood Count 4.04 MIL/MM3 3.81 MIL/MM3 (4.50-5.90) (4.50-5.90) Hemoglobin 12.3 GM/DL 11.4 GM/DL (13.0-17.0) (13.0-17.0) Hematocrit 36.1 % 34.6 % (39.0-51.0) (39.0-51.0) Neutrophils (%) (Auto) 82.8 % 86.1 % (16.0-70.0) (16.0-70.0) Lymphocytes (%) (Auto) 8.1 % 5.4 % (9.0-44.0) (9.0-44.0) Neutrophils # (Auto) 9.6 TH/MM3 9.9 TH/MM3 (1.8-7.7) (1.8-7.7) Lymphocytes # (Auto) 0.9 TH/MM3 0.6 TH/MM3 (1.0-4.8) (1.0-4.8) Prothrombin Time 13.0 SEC (9.8-11.6) Chloride Level 111 MEQ/L 109 MEQ/L (98-107) (98-107) Blood Urea Nitrogen 21 MG/DL (7-18) Creatinine 1.50 MG/DL 1.40 MG/DL (0.60-1.30) (0.60-1.30) Estimat Glomerular Filtration 46 ML/MIN (>89) 50 ML/MIN (>89) Rate Random Glucose 118 MG/DL (74-106) Aspartate Amino Transf 13 U/L (15-37) 13 U/L (15-37) (AST/SGOT) Troponin I LESS THAN 0.02 NG/ML (0.02-0.05) Total Protein 6.3 GM/DL 5.7 GM/DL (6.4-8.2) (6.4-8.2) Urine Color FLO (YELLW/STRAW) Urine Turbidity CLOUDY (CLEAR) Urine Occult Blood LARGE (NEG) Urine RBC INNUM /hpf (0-3) Urine Squamous Epithelial 6-8 /hpf (0-5) Cells Potassium Level 3.4 MEQ/L (3.5-5.1) Calcium Level 8.0 MG/DL (8.5-10.1) Albumin 2.9 GM/DL (3.4-5.0) Imaging Last Impressions Abdomen/Pelvis CT 04/04/17 0000 Signed Impressions: Service Date/Time: Tuesday, April 04, 2017 01:02 - CONCLUSION: 1. Mild hydronephrosis, perinephric stranding and slight proximal ureteral dilatation on the left secondary to a left ureteral calculus at the L5 level. 2. Atherosclerosis and aneurysmal dilatation of the infrarenal abdominal aorta identified. 3. Small fat containing umbilical hernia. 4. Hiatal hernia. Christiano Matamoros MD PE at Discharge GENERAL: This is a well-nourished, well-developed patient, in no apparent distress. CARDIOVASCULAR: Regular rate and rhythm without murmurs, gallops, or rubs. RESPIRATORY: Clear to auscultation. Breath sounds equal bilaterally. No wheezes , rales, or rhonchi. GASTROINTESTINAL: Abdomen soft, non-tender, nondistended. Normal active bowel sounds MUSCULOSKELETAL: Extremities without clubbing, cyanosis, or edema. NEURO: Alert & Oriented to self Pt update on day of discharge Is seen today. No further pain complaint. Patient feels he may have passed stone. Heart rate is improved. Hospital Course Patient seen and treated for kidney stone with left Hydronephrosis. Patient did have some tachycardia and pain complaint and was watched in the hospital for this. This improved with pain management, hydration. Serum antibiotics. Cultures were negative and patient was continued on empiric oral antibiotics discharge. Also found to have a abdominal aortic aneurysm without evidence of rupture. Patient is instructed to follow-up with his primary care provider for further surveillance. This was also discussed with his as the patient does have vascular dementia from old strokes Pt Condition on Discharge: Good Discharge Disposition: Discharge Home Discharge Time: > 30 minutes Discharge Instructions DIET: Follow Instructions for: Heart Healthy Diet Activities you can perform: Regular-No Restrictions Follow up Referrals: Urology - 1 Week @ [facility] New Medications: Ciprofloxacin (Cipro) 500 Mg Tab 500 MG PO BID Infection #10 Ref 0 TAB Continued Medications: Amlodipine (Amlodipine) 5 Mg Tab 5 MG PO DAILY Blood Pressure Management #30 Ref 0 TAB Bupropion HCl ER 24 HR (Wellbutrin Xl 24 HR) 150 Mg Tab 150 MG PO DAILY Control Depression Ref 0 TAB Losartan (Cozaar) 25 Mg Tab 25 MG PO DAILY Blood Pressure Management #30 Ref 0 TAB Omeprazole (Omeprazole) 20 Mg Tab 20 MG PO DAILY #30 Ref 0 TAB Rivaroxaban (Xarelto) 20 Mg Tab 20 MG PO DAILY Blood Clot Prevention Ref 0 TAB Discontinued Medications: Bupropion HCl ER 12 HR (Bupropion HCl ER 12 HR) 150 Mg Tab 150 MG PO BID #60 TAB Shanon Collins MD Apr 05, 2017 09:49
[2017-04-05] MEDS ORDERED: cefTRIAXone INJ 1,000 MG in SODIUM CHLORIDE 0.9% INJ 100 ML IV SCH (16:00)
[2017-04-05] MEDS ORDERED: RIVAROXABAN 15 MG TAB PO SCH (20:00)
== END 2017-04-05 12:07 | disposition home or self-care (01) | DRG 694 ==
LOC: PHED 21:32 → PHEDA 04-04 06:52 → PH3A 04-04 08:10
PROVIDERS: ADMIT Hospitalist; ATTEND Hospitalist
DX: N13.2 Hydronephrosis with renal and ureteral calculous obstruction (principal); I69.354 Hemiplegia and hemiparesis following cerebral infarction affecting left non-dominant side; F01.50 Vascular dementia, unspecified severity, without behavioral disturbance, psychotic disturbance, mood disturbance, and anxiety; I48.2 Chronic atrial fibrillation; I71.4 Abdominal aortic aneurysm, without rupture; N28.9 Disorder of kidney and ureter, unspecified; R00.0 Tachycardia, unspecified; E78.5 Hyperlipidemia, unspecified; I69.318 Other symptoms and signs involving cognitive functions following cerebral infarction; I25.10 Atherosclerotic heart disease of native coronary artery without angina pectoris; Z85.51 Personal history of malignant neoplasm of bladder; Z87.442 Personal history of urinary calculi; Z95.5 Presence of coronary angioplasty implant and graft; Z79.02 Long term (current) use of antithrombotics/antiplatelets; I10 Essential (primary) hypertension
CPT/HCPCS: 74176; 80053; 81001; 83605; 83690; 84484; 85025; 85610; 85730; 87040; 93005; 96361; 96374; 96375; J0696; J2270; J2405; J7030; J7040